=== PATIENT | female | born 1975 | race Caucasian/White ===

== ENCOUNTER 2023-01-27 07:17 | Outpatient (OUT) | payer OTHER, SELFPAY ==
--- NOTE | 2023-01-27 07:21 | MM_ITS ---
Patient Name: ANDREAS MOELLER MR#: [id number] : 1975 Exam Date: 01/27/2023 Ordering Doctor: DR JOSE C GUERRERO M.D. RADIOLOGY REPORT PROCEDURE: MM TOMOSYNTHESIS SCREENING BI COMPARISON: MG MAMM RT DIAG FU, 03/29/2019. MG MAMM SCREEN VIOLETA W CAD, 04/17/2020. INDICATIONS: Screening mammogram Calculator Name NCI Breast Cancer Risk Assessment Tool 5 Year Breast Cancer Risk 1.70% Lifetime Breast Cancer Risk 18.20% Personal Breast Cancer No Personal Ovarian Cancer No Treatments None Family Cancers Mother with breast cancer at age 66; Grandmother-maternal with breast cancer at age 96; Sister with skin cancer at age 50. LOCATION: [facility] BREAST COMPOSITION: Scattered areas fibroglandular density. FINDINGS: DIAGNOSTIC CATEGORY 2--BENIGN FINDING. NO CHANGE FROM COMPARISON. Scattered benign-appearing nodules are present. Scattered benign-appearing calcifications are present. Scattered benign-appearing lymph nodes are present. RIGHT BREAST: No significant suspicious finding. LEFT BREAST: No significant suspicious finding. RECOMMENDATIONS: ROUTINE MAMMOGRAM AND CLINICAL EVALUATION IN 12 MONTHS. PLEASE NOTE: A NORMAL MAMMOGRAM DOES NOT EXCLUDE THE POSSIBILITY OF BREAST CANCER. A CLINICALLY SUSPICIOUS PALPABLE LUMP SHOULD BE BIOPSIED. Dictated by: Juan Rivera MD on 01/27/2023 at 12:50 Approved by: Juan Rivera MD on 01/27/2023 at 12:52
== END 2023-01-27 07:18 | disposition home or self-care (01) ==
LOC: MAMMO 07:17
PROVIDERS: PCP Internal Medicine; Visit Provider Internal Medicine
DX: Z12.31 Encounter for screening mammogram for malignant neoplasm of breast (principal); Z80.3 Family history of malignant neoplasm of breast; Z80.8 Family history of malignant neoplasm of other organs or systems
CPT/HCPCS: 77063; 77067

== ENCOUNTER 2023-05-26 14:31 | Outpatient (OUT) | payer OTHER, SELFPAY ==
--- NOTE | 2023-05-26 14:36 | CT_ITS ---
The [address] [address] Patient Name: ANDREAS MOELLER MRN: [id number] date: 1975 Sex: F Assigned Patient Location: CT Current Patient Location: CT Accession/Order Number: [id number] Exam Date: 05/26/2023 14:45 Report Date: 05/27/2023 14:46 At the request of: BALJINDER LANDERS Procedure: CT cervical spine wo con CT cervical spine wo con, 05/26/2023 2:45 PM EDT INDICATION: Chronic Migraine G43.701, Chronic Cluster Headache COMPARISON: There is no appropriate prior study for comparison. TECHNIQUE: Thin-section axial CT images of the entire cervical spine were acquired without contrast. Supplemental 2D reformatted images were generated and reviewed as needed. Dose reduction techniques were achieved by using automated exposure control and/or adjustment of mA and/or kV according to patient size and/or use of iterative reconstruction technique. FINDINGS: No abnormality of the base of skull is noted. There is loss of normal physiologic cervical lordosis. There are mild disc osteophyte complex associated with uncovertebral joint arthrosis from C3 to T1. No significant neuroforaminal narrowing or canal stenosis in cervical spine is noted. There is focal calcification anterior longitudinal ligament at the level of C5-C6. The visualized portions of lungs are unremarkable. There is no suspicious osteolytic or osteoblastic lesion. CT/CT cervical spine wo con IMPRESSION: Mild degenerative changes of lower cervical spine without significant neuroforaminal narrowing or canal stenosis. Electronically authenticated by: DOMINIC JAEGER Date: 05/27/2023 14:46
--- NOTE | 2023-05-26 14:36 | CT_ITS ---
The [address] [address] Patient Name: ANDREAS MOELLER MRN: [id number] date: 1975 Sex: F Assigned Patient Location: CT Current Patient Location: Accession/Order Number: [id number] Exam Date: 05/26/2023 14:45 Report Date: 05/27/2023 11:05 At the request of: BALJINDER LANDERS Procedure: CT head/brain wo con CT head/brain wo con, 05/26/2023 2:45 PM EDT INDICATION: Chronic Migraine G43.701, Chronic Cluster Headache COMPARISON: There is no appropriate prior study for comparison. TECHNIQUE: Axial CT images of the brain from skull base to vertex, including portions of the face and sinuses, were obtained without contrast . Multiplanar reformatted images were generated and reviewed as needed. Dose reduction techniques were achieved by using automated exposure control and/or adjustment of mA and/or kV according to patient size and/or use of iterative reconstruction technique. FINDINGS: The cerebral sulci as well as ventricular system are appropriate for age. There is no intracranial mass, mass effect, midline shift, intra or extra-axial fluid collection or hemorrhage. The visualized portions of orbits, mastoid air cells as well as paranasal sinuses are unremarkable. There is no suspicious osteolytic or osteoblastic lesion. CT/CT head/brain wo con IMPRESSION: No acute intracranial process is noted. No definite radiological finding to explain patient's symptoms. Electronically authenticated by: DOMINIC JAEGER Date: 05/27/2023 11:05
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
== END 2023-05-26 14:32 | disposition home or self-care (01) ==
PROVIDERS: PCP Internal Medicine; Visit Provider Nurse Practitioner Family
DX: G43.701 Chronic migraine without aura, not intractable, with status migrainosus (principal); G44.029 Chronic cluster headache, not intractable; R52 Pain, unspecified; R53.1 Weakness; T73 Effects of other deprivation; M50.30 Other cervical disc degeneration, unspecified cervical region
CPT/HCPCS: 70450; 72125